=== PATIENT | male | born 1985 | race Two or more races ===

== ENCOUNTER 2023-08-26 16:50 | Emergency (ER) | payer MEDICAID ==
[~2023-08-26] VITALS: Ht 172.7 cm; Wt 97.1 kg
[2023-08-26 17:17] VITALS: BP 140/87; PULSE 77; RESP 18; TEMP 97.6; O2SAT 99
[2023-08-26] MEDS ORDERED: LORazepam 0.5 MG TAB PO ONE (17:40)
[2023-08-26] MEDS ORDERED: LORazepam 0.5 MG TAB ONE (19:06)
[2023-08-26 19:25] VITALS: PULSE 64; RESP 18; O2SAT 100
[2023-08-26] MEDS: ALBUTEROL SULFATE/IPRATROPIU 3 ML SOL IH ONE (19:25)
[2023-08-26] MEDS ORDERED: ALBU0.0912 INH (20:57)
[2023-08-26] MEDS ORDERED: PRED20TA5 PO (20:57)
== END 2023-08-26 21:02 | disposition home or self-care (01) ==
LOC: MED 16:50
DX: R07.9 Chest pain, unspecified (principal); J45.909 Unspecified asthma, uncomplicated; I10 Essential (primary) hypertension; Z79.899 Other long term (current) drug therapy; Z88.2 Allergy status to sulfonamides; Z88.1 Allergy status to other antibiotic agents
CPT/HCPCS: 71045; 93005; 94640; 99283